=== PATIENT | female | born 2000 | race Hispanic/Latino ===

== ENCOUNTER 2022-08-20 18:50 | Inpatient (IN) | payer OTHER ==
[~2022-08-20] VITALS: Ht 160 cm; Wt 67.6 kg
--- OUTSIDE RECORDS SUMMARY | ~2022-08-20 | XMS | Continuity of Care Document ---
Demographics + + + | Address | [address] | | | [place] [address] | + + + | Preferred Language | Unknown | + + + | Marital Status | Never | + + + | Anglican Affiliation | Unknown | + + + | Race | Unknown | + + + | Ethnic Group | Unknown | + + + Author + + + | Author | [facility] | + + + | Organization | [facility] | + + + | Address | [address] | | | [place] [address] | + + + | Phone | | + + + Care Team Providers + + + + | Care Fleet Manager Name | Role | Phone | + + + + Unavailable | Unavailable | + + + + Allergies and Intolerances + + + + + | date | description | facility | type | + + + + + | (no date) | No Known Drug | [facility] | (unknown) | | | Allergies | | | + + + + + Encounters No information. Functional Status No information. Immunizations No information. Medications No information. Problems + + + + | date | description | facility | + + + + | 2022-04-09 12:59 | [facility] | [facility] | | | NORMAL FIRST PREG, SECOND | | | | [facility] | | + + + + | 2022-04-09 12:59 | 20 WEEKS GESTATION OF | [facility] | | | | | + + + + | 2022-06-14 09:48 | DECREASED MOVEMENTS, | [facility] | | | THIRD [facility], [facility]SP | | + + + + | 2022-06-14 09:48 | DECREASED MOVEMENTS, | [facility] | | | UNSP [facility], [facility] | | + + + + | 2022-06-14 09:48 | 29 WEEKS GESTATION OF | [facility] | | | | | + + + + | 2022-07-22 11:27 | [facility] | [facility] | | | NORMAL PREG, UNSP, THIRD | | | | TRIMESTER | | + + + + | 2022-07-22 11:27 | 35 WEEKS GESTATION OF | [facility] | | | | | + + + + Procedures No information. Results/Labs No information. Social History No information. Vital Signs No information."
[~2022-08-20 18:50] MED LIST: CEPHALEXIN500 MG PO; NORCO 5-325 TA1 EACH PO; PYRIDIUM200 MG PO
[2022-08-20 23:16] VITALS: BP 127/76
--- NOTE | 2022-08-21 04:53 | PR ---
[facility] [address] [place], [place] [address] Signed Progress Notes IP Datetime Report Generated by MARIBEL: 08/21/2022 04:53 PROGRESS NOTES: [id number] Impression: Normal Progression of Labor; Non-reassuring Heart Rate Procedures: Intrauterine Pressure Catheter; Scalp Electrode; Sterile Vag Exam Plan: Continue Present Management; Anticipate Vaginal Delivery VITAL SIGNS: [id number] EXAM: [id number] Dilatation: 7.0 Effacement: 90 Station: -2 MEMBRANES: [id number] Amniotic Fluid Color: Clear Comments: S: Patient well. Resting comfortably in bed. O: AFVSS SVE: 790/-1 FHT: CAT II with minimal variability and occasional variable decelerations. A/P: Patient well. IUPC and FSE placed. Will monitor MVUs. If inadequate will consider low dose pitocin to facilitate moving forward towards vaginal delivery. Patient to sit in high fowlers position. FETUS A: [id number] FHR Baseline: 150 Variability: Moderate 6-25bpm Accelerations: None Decelerations: None FHR Category: Category I Presentation: Vertex FETUS B: [id number] Signing Physician: Laila Sinclair MD Copies: ~ *Electronically Signed* 08/21/22 0453 LAILA SINCLAIR MD PATIENT NAME: TEVIN TAYLOR PROGRESS NOTE DATE OF : 99 PHYSICIAN: LAILA SINCLAIR MD RPT #: [id number] REPORT IS CONFIDENTIAL AND NOT TO BE RELEASED WITHOUT AUTHORIZATION
--- NOTE | 2022-08-21 05:46 | PR ---
[facility] [address] [facility] [place], [place] [address] Signed Progress Notes IP Datetime Report Generated by CPN: 08/21/2022 05:46 PROGRESS NOTES: [id number] Impression: Arrest of Dilatation/Descent Procedures: Intrauterine Pressure Catheter; Scalp Electrode; Sterile Vag Exam Plan: Augmentation VITAL SIGNS: [id number] EXAM: [id number] Dilatation: 7.0 Effacement: 90 Station: 0 MEMBRANES: [id number] Amniotic Fluid Color: Clear Comments: S: Patient resting in bed. Reporting feeling more pressure. O: AFVSS SVE: /0 FHT: CAT II with occasional variables FETUS A: [id number] FHR Baseline: 150 Variability: Moderate 6-25bpm Accelerations: None Decelerations: None FHR Category: Category I Presentation: Vertex FETUS B: [id number] Signing Physician: Lay Sinclair MD Copies: ~ *Electronically Signed* 08/21/22 0546 LAY SINCLAIR MD PATIENT NAME: TEVIN TAYLOR RASHIDA PROGRESS NOTE DATE OF : 99 PHYSICIAN: LAY SINCLAIR MD RPT #: [id number] REPORT IS CONFIDENTIAL AND NOT TO BE RELEASED WITHOUT AUTHORIZATION
--- NOTE | 2022-08-21 07:07 | PR ---
[facility] [address] [facility] [place], [place] [address] Signed Progress Notes IP Datetime Report Generated by CPN: 08/21/2022 07:07 PROGRESS NOTES: [id number] Impression: Normal Progression of Labor Procedures: Sterile Vag Exam Plan: Continue Present Management Informed Consent Obtain: Vaginal Delivery VITAL SIGNS: [id number] EXAM: [id number] Dilatation: 8.0 Effacement: 100 Station: 1 MEMBRANES: [id number] Amniotic Fluid Color: Clear Comments: S: Patient lying in bed. Reports feeling more vaginal pressure and feeling contractions more. O: AFVSS SVE: 8/C/+1 FHT: CAT II A/P: Patient well. Temp beginning to increase. Last temp of 100.1. 1000 mg PO Tylenol ordered. FETUS A: [id number] FHR Baseline: 150 Variability: Moderate 6-25bpm Accelerations: None Decelerations: None FHR Category: Category I Presentation: Vertex FETUS B: [id number] Signing Physician: Laila Sinclair MD Copies: ~ *Electronically Signed* 08/21/22706 LAILA SINCLAIR MD PATIENT NAME: TEVIN TAYLOR PROGRESS NOTE DATE OF : 99 PHYSICIAN: LAILA SINCLAIR MD RPT #: [id number] REPORT IS CONFIDENTIAL AND NOT TO BE RELEASED WITHOUT AUTHORIZATION
--- NOTE | 2022-08-21 07:31 | PR ---
[facility] [address] [place], [place] [address] Signed Progress Notes IP Datetime Report Generated by MARIBEL: 08/21/2022 07:31 PROGRESS NOTES: [id number] Impression: Normal Progression of Labor; Intrauterine Infection Procedures: Scalp Electrode; Sterile Vag Exam Plan: Antibiotic Therapy Informed Consent Obtain: Vaginal Delivery; Section Delivery; Risks, Benefits and Alternatives Discussed VITAL SIGNS: [id number] EXAM: [id number] Dilatation: 9.0 Effacement: 100 Station: 1 MEMBRANES: [id number] Amniotic Fluid Color: Clear Comments: Pt seen and examined. C/O some discomfort on RIGHT side w/ contractions. Pt denies malaise, but maternal fever, tachycardia, and tachycardia noted. Discussed slow progression of labor but now pt 9cm. Discussed Cat 2 tracing. Will start abx (amp and gent) and monitor baby and mother closely. Discussed indication for if needed. All questions answered to the best of my ability and to pts apparent satisfaction. FSE replaced FETUS A: [id number] FHR Baseline: 150 Variability: Moderate 6-25bpm Accelerations: None Decelerations: None FHR Category: Category I Presentation: Vertex FETUS B: [id number] Signing Physician: Alia Riojas DO Copies: ~ *Electronically Signed* 08/21/22 0731 ALIA RIOJAS (IRENE) DO PATIENT NAME: TEVIN TAYLOR PROGRESS NOTE DATE OF : 99 PHYSICIAN: ALIA RIOJAS (JD) DO RPT #: [id number] REPORT IS CONFIDENTIAL AND NOT TO BE RELEASED WITHOUT AUTHORIZATION
--- NOTE | 2022-08-21 09:46 | PR ---
[facility] [facility] [address] [place], [place] [address] Signed Progress Notes IP Datetime Report Generated by CPN: 08/21/2022 09:46 PROGRESS NOTES: [id number] Impression: Normal Progression of Labor; Reassuring Heart Rate Procedures: Scalp Electrode; Sterile Vag Exam Other Procedures: Active management 2nd stage labor Plan: Continue Present Management; Anticipate Vaginal Delivery Informed Consent Obtain: Vaginal Delivery VITAL SIGNS: [id number] EXAM: [id number] Dilatation: 10.0 Effacement: 100 Station: 1 MEMBRANES: [id number] Amniotic Fluid Color: Clear Comments: Physician at patient's bedside pushing w/ contractions since complete. Pt received ampicillin and gentamicin as ordered and maternal temperature resolved. Pt pushing with good effort. Fetus w/ prolonged deceleration noted earlier that resolved w/ maternal position changes. Again pt pushing well good effort and making slow progress. Continue pushing and anticipate . All questions answered FETUS A: [id number] FHR Baseline: 150 Variability: Moderate 6-25bpm Accelerations: None Decelerations: None FHR Category: Category I Presentation: Vertex FETUS B: [id number] Signing Physician: Alia Riojas DO Copies: ~ *Electronically Signed* 08/21/22 0946 ALIA RIOJAS (IRENE) DO PATIENT NAME: TEVIN TAYLOR PROGRESS NOTE DATE OF : 99 PHYSICIAN: ALIA RIOJAS (JD) DO RPT #: [id number] REPORT IS CONFIDENTIAL AND NOT TO BE RELEASED WITHOUT AUTHORIZATION
--- NOTE | 2022-08-22 09:09 | PR ---
[facility] [address] [facility] [place], [place] [address] Signed PP Progress Notes Datetime Report Generated by CPN: 08/22/2022 09:09 SUBJECTIVE: [id number] Pain: Within Normal Limits Nausea/Vomiting: Denies Flatus: No Bowel Movement: No Vital Signs: [id number] Vital Signs: Reviewed; Within Normal Limits EXAM: Ongoing Abdomen/Uterus: Normal Lochia: Normal Extremities: Normal Progress: Normal IMPRESSION/PLAN/PROCEDURES: [id number] Impression: Normal Progression Plan: Continue Present Management Progress Notes: 22 yo s/p . PPD #1. Doing well. Denies ESPINOZA, CP, SOB, F/C, N/V, RUQ pain, changes in vision, vaginal discharge. Mild vaginal bleeding. Ambulating, tolerating regular diet, pain controlled, no flatus or bowel movement, vodiding on her own. Abdomen: Soft. Fundus firm, below umbilicus. Non tender. Musc: Minimal edema. No C/C. Moving all extremeties. A/P: 22 yo s/p . PPD #1. Doing well. Continue management. Disposition: In house. Likely discharge home tomorrow AM. Signing Physician: Laila Sinclair MD Copies: ~ *Electronically Signed* 08/22/22908 LAILA SINCLAIR MD PATIENT NAME: TEVIN TAYLOR RASHIDA PROGRESS NOTE DATE OF : 99 PHYSICIAN: LAILA SINCLAIR MD RPT #: [id number] REPORT IS CONFIDENTIAL AND NOT TO BE RELEASED WITHOUT AUTHORIZATION
--- NOTE | 2022-08-22 13:02 | NUR ---
MOM OUT OF BED, JUST EXITING BATHROOM. SUPPORT PERSON ASLEEP ON COUCH. BABY NOT IN ROOM. MOM DENIED ANY NEEDS. REQUESTED TAPING FOREMAN VISIT LATER IN THE DAY. SHORT VISIT SO NOT TO DISTURB.
--- NOTE | 2022-08-23 09:20 | PR ---
[facility] [address] [place], [place] [address] Signed PP Progress Notes Datetime Report Generated by CPN: 08/23/2022 09:20 SUBJECTIVE: [id number] Pain: Within Normal Limits Nausea/Vomiting: Denies Flatus: Yes Bowel Movement: No Vital Signs: [id number] Vital Signs: Reviewed; Within Normal Limits EXAM: Ongoing Abdomen/Uterus: Normal Lochia: Normal Extremities: Normal Progress: Normal IMPRESSION/PLAN/PROCEDURES: [id number] Impression: Normal Progression Plan: Continue Present Management Progress Notes: 22 yo s/p vaginal delivery. PPD# 2. Doing well. Denies ESPINOZA, CP, SOB, F/C, N/V, RUQ pain, changes in vision. Normal vaginal bleeding. Ambulating, pain controlled, tolerating regular diet, voiding. No concerns or complaints. O: AFVSS Abdomen: uterus firm. Below umbilicus. Non tender. Musc: Moving all extremeties. No C/C. Minimal edema. A/P: 22 yo s/p vaginal delivery. Doing well. Discharge home today. Signing Physician: Laila Sinclair MD Copies: ~ *Electronically Signed* 08/23/22919 LAILA SINCLAIR MD PATIENT NAME: TEVIN TAYLORPE PROGRESS NOTE DATE OF : 99 PHYSICIAN: LAILA SINCLAIR MD RPT #: [id number] REPORT IS CONFIDENTIAL AND NOT TO BE RELEASED WITHOUT AUTHORIZATION
== END 2022-08-23 11:05 | disposition home or self-care (01) | DRG 806 ==
LOC: FBCO 18:50 → FBC 22:20
PROVIDERS: ADMIT Obstetrics & Gynecology; ATTEND Obstetrics & Gynecology
PROC: 10E0XZZ Delivery of Products of Conception, External Approach (ICD-10-PCS; principal; 2022-08-21)
PROC: 10907ZC Drainage of Amniotic Fluid, Therapeutic from Products of Conception, Via Natural or Artificial Opening (ICD-10-PCS; 2022-08-21)
PROC: 3E0R3BZ Introduction of Anesthetic Agent into Spinal Canal, Percutaneous Approach (ICD-10-PCS; 2022-08-21)
PROC: 00HU33Z Insertion of Infusion Device into Spinal Canal, Percutaneous Approach (ICD-10-PCS; 2022-08-21)
PROC: 0HQ9XZZ Repair Perineum Skin, External Approach (ICD-10-PCS; 2022-08-21)
PROC: 10H07YZ Insertion of Other Device into Products of Conception, Via Natural or Artificial Opening (ICD-10-PCS; 2022-08-21)
PROC: 3E033VJ Introduction of Other Hormone into Peripheral Vein, Percutaneous Approach (ICD-10-PCS; 2022-08-21)
DX: O76 Abnormality in fetal heart rate and rhythm complicating labor and delivery (principal); O75.2 Pyrexia during labor, not elsewhere classified; Z37.0 Single live birth; O70.0 First degree perineal laceration during delivery; O71.82 Other specified trauma to perineum and vulva; O62.1 Secondary uterine inertia; O63.1 Prolonged second stage (of labor); Z3A.39 39 weeks gestation of pregnancy; Z87.891 Personal history of nicotine dependence
CPT/HCPCS: 01960; 36415; 59025; 80170; 85027; 86850; 86900; 86901; A9270; G0463; J0290; J1580; J2590; J2795; J3010; J7060; J7121